=== PATIENT | female | born 1990 | race Asian ===

== ENCOUNTER 2022-12-12 14:23 | Inpatient (IN) | payer OTHER ==
[~2022-12-12] VITALS: Ht 160 cm; Wt 80.8 kg
[2022-12-18] VITALS (8 sets, daily range): BP systolic 111–136; BP diastolic 53–92; PULSE 80–93; TEMP 98.1–98.2
--- NOTE | 2022-12-18 18:50 | NUR ---
1855- PATIENT AMBULATORY TO UNIT WITH SPOUSE. PATIENT CHANGED INTO HOSPITAL GOWN 1900- EFMX2. PATIENT DENIES LEAKING OF FLUID, CONTRACTIONS, VAGINAL BLEEDING. ADMISSION ASSESSMENT STARTED. PLAN OF CARE DISCUSSED. QUESTIONS INVITED AND ANSWERED.
[2022-12-18] MEDS ORDERED: PRENATAL TABLET PO (19:38)
[2022-12-18 19:42] LABS: HEMOGLOBIN 12.4 g/dl (12.5-16.0); MEAN CELL VOLUME 86 fl (80.0-100.0); MEAN CORPUSCULAR HEMOGLOBIN 29 pg (27-31); MEAN CORPUSCULAR HGB CONC 34 g/dl (33.0-37.0); MEAN PLATELET VOLUME 10.9 fl (7.4-10.4); PLATELET COUNT 213 K/mm3 (130-400); RED BLOOD COUNT 4.31 M/mm3 (4.10-5.30); REDCELL DISTRIBUTION WIDTH-CV 16.1 % (11.5-14.5)
[2022-12-18 20:42] LABS: ANISOCYTOSIS 1+; LYMPHOCYTE 17 % (20.0-51.0); METAMYELOCYTE 1 % (0-0); NEUTROPHILS 74 % (42.0-75.2)
[2022-12-19] VITALS (82 sets, daily range): BP systolic 91–157; BP diastolic 48–89; PULSE 66–137; TEMP 97.5–98.3
[2022-12-19] MEDS ORDERED: OSCAL 500 TAB500 MG PO (01:10)
--- NOTE | 2022-12-19 02:20 | NUR ---
0220- PATIENT UP TO RESTROOM 0230- PATIENT RETURNED TO BED AND REPOSITONED IN [place] RIGHT FOR MATERNAL COMFORT. DIFFICULTY TRACING HEART TONES. NURSE AT BEDSIDE REPOSITIONING EFMX2. HEART TONES AUDIBLE. 0245- MATERNAL POSITION CHANGE TO RIGHT LATERAL DUE TO DIFFICULTY TRACING HEART TONES. HEART TONES AUDIBLE. 0252- MATERNAL REPOSITIONED IN [place] RIGHT. HEART TONES TRACING.
--- NOTE | 2022-12-19 09:30 | NUR ---
PT SITTING UP ON THE SIDE OF THE BED FOR EPIDURAL PLACEMENT. MATERNAL VITAL SIGN STABLE. LR BOLUS INFUSING PER PROTOCOL.EFM AND TOCO DIFFICULTY TRACING DUE TO MATERNAL POSITIONING. 0944 SINGLE SHOT ADMINISTERED PER EDWARD DANIELS.PT TOLERATED PROCEDURE WELL.
--- NOTE | 2022-12-19 11:26 | NUR ---
DR DURANT BEDSIDE.SVE PER CARLEEN /-1. AROM PERFORMED WITH CLEAR FLUID RETURNED. MATERNAL VITAL SIGNS STABLE.DIFFICULTY TRACING EFM. FSE PLACED BY DR DURANT.PT TOLERATED PROCEDURE WELL.
--- NOTE | 2022-12-19 12:40 | NUR ---
1235 DR DURANT BEDSIDE.SVE PER DR DURANT /-1. 1240 BABY HAVING RECURRENT LATE DECELS.PITOCIN SHUT OFF AT THIS TIME.REPOSIITONED AND LR BOLUS INFUSING PER PROTOCOL.
--- NOTE | 2022-12-19 13:13 | NUR ---
1308 PT HAS RECOVERED.PITOCIN RESTARTED AT [address] LOW VERBAL ORDERS.
--- NOTE | 2022-12-19 19:30 | NUR ---
1814- REPORT RECIEVED. DR. DURANT AT BEDSIDE PUSHING WITH PATIENT. 1819- MACHUCA CATHETER REMOVED. NURSERY AND CHARGE NURSE CALLED FOR DELIVERY. 1840- PITOCIN INCREASED TO 18MU PER DR. MIKE REQUEST. DR. DURANT EDUCATING PATIENT ON RISK AND BENEFITS OF VACUUM DELIVERY. 185- VACUUM PLACED BY DR. DURANT WITHOUT DIFFICULTY NO PRESSURE APPLIED AT THIS TIME. 185- VACUUM REMAINS IN PLACE. PRESSURE APPLIED DURING CONTRACTION. GOOD MATERNAL PUSHING EFFORTS. TRACTION APPLIED BY DR. DURANT. PRESSURE RELEASED AT COMPLETION OF CONTRACTION. 1856- VACUUM PRESSURE APPLIED DURING CONTRACTION. POP OFF NOTED WITH FIRST PUSH OF CONTRACTION. REMAINING PUSHES WITH THIS CONTRACTION DONE WITHOUT VACUUM IN PLACE. 185- DR. DURANT EDUCATES PATIENT ON EPISIOTOMY. PATIENT VERBALIZES UNDERSTANDING. MIDLINE EPISIOTOMY PERFOMRED BY DR. DURANT. 185- VACUUM PLACED BY DR. DURANT WITHOUT DIFFICULTY NO PRESSURE APPLIED AT THIS TIME 1858- VACUUM PRESSURE APPLIED DURING CONTRACTION. POP OFF NOTED WITH FIRST PUSH OF CONTRACTION. REMAINING PUSHES WITH THIS CONTRACTION DONE WITHOUT VACUUM IN PLACE. 190- DR. DURANT DISCUSSES THAT IF A THIRD POP OFF WITH VACUUM OCCURS THAT WE ARE NOT ABLE TO CONTINUE TO FURTHER ATTEMPT WITH A VACUUM ATTEMPTED DELIVERY. PATIENT GIVEN OPTION TO CONTINUE PUSHING WITH NO VACUUM AT THIS TIME BUT IF HEART TONES CONTINUE TO HAVE DEEP VARIABLES THAT DON'T RESOLVE QUICKLY AFTER CONTRACTION FINISHES THEN A CSECTION MAY BE NECESSARY. PATIENT VERBALIZES UNDERSTANDING AND OPTS TO CONTINUE PUSHING EFFORTS WITH NO VACUUM. 1916- SPONTANEOUS VAGINAL DELIVERY OF VIABLE BABY GIRL. CORD CLAMPED AND CUT BY FOB. BABY DRIED AND STIMULATED BY DR. DURANT. SPONTANEOUS CRY NOTED. BABY CARES ASSUMED BY Alma SAENZ RN. 1921- SPONTANEOUS DELIVERY OF INTACT PLACENTA. PITOCIN STARTED AT 333ML/HR PER PROTOCOL. DR. DURANT BEGINS REPAIR OF 2ND DEGREE LACERATION, RIGHT PERIURETHRAL AND MIDLINE EPISIOTOMY. 0- RECOVERY STARTED.
--- NOTE | 2022-12-19 23:30 | NUR ---
Up to bathroom with steady gait. Voids large amount. Instructed in pericare. Ambulatory to room.
[2022-12-20 03:30] VITALS: BP 122/64; PULSE 100; TEMP 97.8
[2022-12-20 07:15] VITALS: BP 115/59; PULSE 76; TEMP 97.5
--- NOTE | 2022-12-20 09:56 | NUR ---
Initial visit attempt; Hearing Test taking place, Housekeeper Caregiver left card offering Congratulations for the of their daughter and information regarding the availability of Spiritual Care at our hospital.
[2022-12-20 16:51] VITALS: BP 114/60; PULSE 80; TEMP 97.5
[2022-12-20 19:30] VITALS: BP 114/70; PULSE 74; TEMP 98
[2022-12-21 06:30] VITALS: BP 126/70; PULSE 74; TEMP 97.9
[2022-12-21] MEDS ORDERED: IBU800 M1 PO (08:54)
[2022-12-21 16:52] VITALS: BP 146/67; PULSE 70; TEMP 97.8
--- NOTE | 2022-12-21 17:40 | NUR ---
ALL UT PAPERWORK REVIEWED AND UNDERSTOOD INCLUDING FOLLOW UP APPOINTMENTS. REPEAT BILIRUBIN SATURDAY @ 1000. REPEAT CARSEAT TRIAL SCHEDULED IN 4 WEEKS. PT AMBULATORY FROM UNIT IN STABLE CONDITION. PLACED SAFELY AND APPROPRIATELY IN CARBED. INSTRUCTIONS PROVIDED. NO FURTHER QUESTIONS OR CONCERNS AT THIS TIME.
== END 2022-12-21 17:40 | disposition home or self-care (01) | DRG 806 ==
LOC: OB 14:23 → LDR 12-18 18:45 → OB 12-18 18:45
PROVIDERS: ADMIT Student in an Organized Health Care Education/Training Program
PROC: 3E0P7VZ Introduction of Hormone into Female Reproductive, Via Natural or Artificial Opening (ICD-10-PCS; 2022-12-18)
PROC: 10D07Z6 Extraction of Products of Conception, Vacuum, Via Natural or Artificial Opening (ICD-10-PCS; principal; 2022-12-19)
PROC: 0KQM0ZZ Repair Perineum Muscle, Open Approach (ICD-10-PCS; 2022-12-19)
PROC: 0UQMXZZ Repair Vulva, External Approach (ICD-10-PCS; 2022-12-19)
PROC: 0W8NXZZ Division of Female Perineum, External Approach (ICD-10-PCS; 2022-12-19)
PROC: 10907ZC Drainage of Amniotic Fluid, Therapeutic from Products of Conception, Via Natural or Artificial Opening (ICD-10-PCS; 2022-12-19)
PROC: 3E033VJ Introduction of Other Hormone into Peripheral Vein, Percutaneous Approach (ICD-10-PCS; 2022-12-19)
DX: O36.5930 Maternal care for other known or suspected poor fetal growth, third trimester, not applicable or unspecified (principal); O41.03X0 Oligohydramnios, third trimester, not applicable or unspecified; Z37.0 Single live birth; O76 Abnormality in fetal heart rate and rhythm complicating labor and delivery; O70.1 Second degree perineal laceration during delivery; O71.82 Other specified trauma to perineum and vulva; O29.5X Other complications of spinal and epidural anesthesia during pregnancy; O75.81 Maternal exhaustion complicating labor and delivery; O65.1 Obstructed labor due to generally contracted pelvis; O99.824 Streptococcus B carrier state complicating childbirth; O99.02 Anemia complicating childbirth; D64.9 Anemia, unspecified; O34.13 Maternal care for benign tumor of corpus uteri, third trimester; D25.9 Leiomyoma of uterus, unspecified; Z3A.38 38 weeks gestation of pregnancy
CPT/HCPCS: J2401; J2540; J2590; J2795; J7120